=== PATIENT | female | born 1940 | race Caucasian/White ===

== ENCOUNTER → 2016-10-03 | Outpatient (CLI) | payer OTHER, MEDICARE ==
[~2016-10-03] MED LIST: AMBIEN 10 MG TA10 MG PO; AMBIEN 5 MG TABL5 M1 PO; ATIVAN0.5 MG PO; AVAPRO300 MG PO; AVELOX 400 MG400 MG PO; BENICAR40 MG PO; BYSTOLIC 5 MG5 M1 PO; CEFDINIR PO; CEPHALEXIN 500500 M2 PO; DARVOCET-N 1001 EACH PO; DICLOXACILLIN250 M1 OR; DILTIAZEM ER240 M1 PO; EXPECTORANT200 MG PO; HYDROCODON-ACE1 EAC7; HYDROCODONE-AP1 EA11 PO; MOM PO; MUCINEX TA600 MG/TA1 PO; NEURONTIN 300M300 M2 PO; NEURONTIN300 MG PO; NEURONTIN600 MG PO; OXYCODONE HCL5 M1 PO; PERCOCET 7.5-51 EACH PO; PLAVIX 75 MG TA75 MG PO; PREDNISONE 20 M20 M1 PO; PREDNISONE 20 M20 MG PO; PRILOSEC20 MG PO; PROAIR HFA8.5 GM; PROVENTIL17 G1 IH; REMERON15 M1 PO; ROBAXIN 750 MG750 M1 PO; SENOKOT TO GO8.6 MG PO; SIMVASTATIN5 MG PO; SPIRIVA INH; TRAMADOL 50 MG50 MG PO; TRIAMTERENE-HC1 EAC1 PO; VENTOLIN HFA 1818 GM INH; ZANTAC 150MG T150 MG PO; ZOCOR 10 MG TAB10 MG PO; ZOFRAN ODT4 MG PO; ZPAK PO; incomplete list
== END ==
LOC: CAT 14:24
DX: R91.1 Solitary pulmonary nodule (principal)

== ENCOUNTER → 2017-05-22 | Outpatient (CLI) | payer OTHER, MEDICARE | LOC: RAD 12:09 | DX: J44.1 Chronic obstructive pulmonary disease with (acute) exacerbation (principal) ==

== ENCOUNTER 2017-11-12 06:18 | Inpatient (IN) | payer OTHER, MEDICARE ==
[~2017-11-12] VITALS: Ht 170.2 cm; Wt 69.9 kg
--- NOTE | ~2017-11-12 | EKG ---
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: nayeli : 1940 Requested By: Jez Vu Order Number: [id number] MD: Fran Clemens Measurements Intervals [place] Rate: 106 P: 39 MO: 155 QRS: -3 QRSD: 79 T: 88 QT: 333 QTc: 443 Interpretive Statements Sinus tachycardia Abnormal R-wave progression, early transition Compared to ECG 12/05/2016 09:53:43 Heart rate has increased Electronically Signed On 11-12-2017 8:00:06 CONCRETE SMOOTHER by Fran Clemens [email or web address] <ELECTRONICALLY SIGNED> By: Fran Clemens MD, [facility] 11/12/17 0800 8 Fran Clemens MD, [facility] /EPI
[2017-11-12 06:18] VITALS: BP 135/75
[2017-11-12 07:05] LABS: HEMATOCRIT 31.8 % (37.0-47.0); HEMOGLOBIN 10.7 gm/dL (12.0-15.0); MCH 31.3 pg (26.0-34.0); MCHC 33.5 g/dL (28.0-37.0); MCV 93.4 fL (80.0-100.0); RBC 3.41 mil/uL (4.20-5.00); RDW 13.6 % (10.5-14.5); WBC 12.3 thou/uL (4.0-11.0)
[2017-11-12 07:14] LABS: ANION GAP 6 mmol/L (7-16); BUN 24 mg/dL (7-18); CALCIUM 9.3 mg/dL (8.5-10.1); CHLORIDE 102 mmol/L (98-107); CO2 30 mmol/L (21-32); CREATININE 1.8 mg/dL (0.6-1.0); GLUCOSE 105 mg/dL (74-106); POTASSIUM 4.6 mmol/L (3.5-5.1); SODIUM 138 mmol/L (136-145)
[2017-11-12 07:22] LABS: ALBUMIN 3.5 g/dL (3.4-5.0); SGOT 23 U/L (15-37); SGPT 23 U/L (30-65); TOTAL BILIRUBIN 0.3 mg/dL (<0.1-1.0); TOTAL PROTEIN 7.4 g/dL (6.4-8.2); TROPONIN-I < 0.04 ng/mL (<0.06)
[2017-11-12 08:30] VITALS: BP 104/64
[2017-11-12 08:35] VITALS: BP 104/64
[2017-11-12 09:00] VITALS: BP 120/61
[2017-11-12 16:00] VITALS: BP 149/81
[2017-11-12 20:41] VITALS: BP 146/79
[2017-11-13 04:33] VITALS: BP 111/62
[2017-11-13 07:54] VITALS: BP 143/75
[2017-11-13 10:14] LABS: HEMATOCRIT 29.7 % (37.0-47.0); HEMOGLOBIN 9.8 gm/dL (12.0-15.0); MCH 31.9 pg (26.0-34.0); MCHC 33.2 g/dL (28.0-37.0); MCV 96.1 fL (80.0-100.0); RBC 3.09 mil/uL (4.20-5.00); RDW 14.6 % (10.5-14.5); WBC 10.1 thou/uL (4.0-11.0)
[2017-11-13 10:22] LABS: CALCIUM 8.9 mg/dL (8.5-10.1); CREATININE 1.5 mg/dL (0.6-1.0)
[2017-11-13 11:40] LABS: URINE BILIRUBIN NEGATIVE (Negative); URINE BLOOD TRACE (Negative); URINE CLARITY CLEAR; URINE COLOR YELLOW; URINE GLUCOSE-RANDOM* NEGATIVE (Negative); URINE KETONES NEGATIVE (Negative); URINE LEUKOCYTES-REFLEX NEGATIVE (Negative); URINE NITRITE-REFLEX NEGATIVE (Negative); URINE PROTEIN (DIPSTICK) TRACE (Negative); URINE SPECIFIC GRAVITY 1.015 (1.005-1.035); URINE UROBILINOGEN 0.2 E.U./dl (0.2-1.0)
[2017-11-13 15:49] VITALS: BP 87/40
[2017-11-13 20:13] VITALS: BP 130/71
[2017-11-14 03:29] VITALS: BP 135/81
[2017-11-14 08:00] VITALS: BP 140/85
[2017-11-14 16:00] VITALS: BP 109/52
[2017-11-14 21:11] VITALS: BP 128/57
[2017-11-15 00:40] VITALS: BP 125/66
[2017-11-15 04:57] VITALS: BP 133/70
[2017-11-15] MEDS ORDERED: TAMIFLU30 MG PO (07:43)
[2017-11-15] MEDS ORDERED: CEFDINIR300 MG PO (07:44)
[2017-11-15 08:55] VITALS: BP 140/60
[2017-11-15 16:38] VITALS: BP 145/64
[2017-11-15 19:41] VITALS: BP 150/82
[2017-11-16 03:26] VITALS: BP 105/64
[2017-11-16 08:00] VITALS: BP 118/71
[2017-11-16 12:21] VITALS: BP 106/71
[2017-11-16 12:22] VITALS: BP 126/72; BP 146/81
[2018-04-16] MEDS ORDERED: XALATAN2.5 ML OPHTHALMIC (10:06)
== END 2017-11-16 15:00 | DRG 871 ==
LOC: ER 06:18 → 4S 07:39 → EROBS 07:39 → 4S 09:00
PROVIDERS: Emergency Medicine; Family Medicine
DX: A41.9 Sepsis, unspecified organism (principal); J11.00 Influenza due to unidentified influenza virus with unspecified type of pneumonia; J44.1 Chronic obstructive pulmonary disease with (acute) exacerbation; N17.9 Acute kidney failure, unspecified; F41.9 Anxiety disorder, unspecified; I73.9 Peripheral vascular disease, unspecified; I25.10 Atherosclerotic heart disease of native coronary artery without angina pectoris; N18.9 Chronic kidney disease, unspecified; I12.9 Hypertensive chronic kidney disease with stage 1 through stage 4 chronic kidney disease, or unspecified chronic kidney disease; E78.5 Hyperlipidemia, unspecified; G62.9 Polyneuropathy, unspecified; Z79.899 Other long term (current) drug therapy; Z95.820 Peripheral vascular angioplasty status with implants and grafts; Z90.49 Acquired absence of other specified parts of digestive tract; Z90.710 Acquired absence of both cervix and uterus; Z91.041 Radiographic dye allergy status; Z86.73 Personal history of transient ischemic attack (TIA), and cerebral infarction without residual deficits; Z87.891 Personal history of nicotine dependence
CPT/HCPCS: 10100

== ENCOUNTER → 2018-01-01 | Outpatient (CLI) | payer OTHER, MEDICARE ==
[~2018-01-01] MED LIST changes: +CEFDINIR300 MG PO; +TAMIFLU30 MG PO
== END ==
LOC: RAD 14:15
DX: J44.9 Chronic obstructive pulmonary disease, unspecified (principal); J18.9 Pneumonia, unspecified organism; J98.11 Atelectasis

== ENCOUNTER → 2018-04-16 | Outpatient (CLI) | payer OTHER, MEDICARE ==
[~2018-04-16] VITALS: Ht 170.2 cm; Wt 70.4 kg
[~2018-04-16] MED LIST changes: +XALATAN2.5 ML OPHTHALMIC
[2018-04-16 11:04] VITALS: BP 113/84
== END ==
LOC: PAIN 06:07
DX: M47.816 Spondylosis without myelopathy or radiculopathy, lumbar region (principal); I10 Essential (primary) hypertension; Z79.891 Long term (current) use of opiate analgesic

== ENCOUNTER 2018-07-01 16:39 | Emergency (ER) | payer OTHER, MEDICARE ==
[~2018-07-01] VITALS: Ht 170.2 cm; Wt 70.8 kg
--- NOTE | ~2018-07-01 | EKG ---
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
[2018-07-01 16:54] LABS: ABSOLUTE NEUTROPHILS 7.6 thou/uL (1.4-8.2); BASOPHILS 0.9 % (0.0-2.0); EOSINOPHILS 2.5 % (0.0-3.0); HEMATOCRIT 30.9 % (37.0-47.0); HEMOGLOBIN 10.5 gm/dL (12.0-15.0); LYMPHOCYTES 9.5 % (24.0-44.0); MCH 32.6 pg (26.0-34.0); MCHC 33.9 g/dL (28.0-37.0); MCV 96.2 fL (80.0-100.0); MONOCYTES 7.7 % (1.0-8.0); PLATELET COUNT 261 thou/uL (150-400); POLYS 79.4 % (36.0-66.0); RBC 3.21 mil/uL (4.20-5.00); RDW 13.7 % (10.5-14.5); WBC 9.5 thou/uL (4.0-11.0)
[2018-07-01 17:04] LABS: ANION GAP 4 mmol/L (7-16); BUN 31 mg/dL (7-18); CALCIUM 9.7 mg/dL (8.5-10.1); CHLORIDE 104 mmol/L (98-107); CO2 29 mmol/L (21-32); CREATININE 1.7 mg/dL (0.6-1.0); GLUCOSE 103 mg/dL (74-106); POTASSIUM 5.3 mmol/L (3.5-5.1); SODIUM 137 mmol/L (136-145)
[2018-07-01 17:12] LABS: ALBUMIN 3.6 g/dL (3.4-5.0); SGOT 20 U/L (15-37); SGPT 17 U/L (30-65); TOTAL BILIRUBIN 0.2 mg/dL (<0.1-1.0); TOTAL PROTEIN 8.3 g/dL (6.4-8.2); TROPONIN-I <0.06 ng/mL (<0.06)
[2018-07-01] MEDS ORDERED: PREDNISONE 20 M20 MG PO (18:27)
[2018-07-01] MEDS ORDERED: PROAIR HFA8.5 GM INH (18:27)
[2018-07-01] MEDS ORDERED: DOXYCYCLINE 10100 MG PO (18:28)
[2018-07-01 18:29] VITALS: BP 119/68
== END 2018-07-01 18:37 | disposition home or self-care (01) ==
LOC: ER 16:39
PROVIDERS: Emergency Medicine
DX: J44.1 Chronic obstructive pulmonary disease with (acute) exacerbation (principal); Z90.710 Acquired absence of both cervix and uterus; Z87.891 Personal history of nicotine dependence; Z91.041 Radiographic dye allergy status; Z96.0 Presence of urogenital implants

== ENCOUNTER 2018-08-17 16:55 | Inpatient (IN) | payer OTHER, MEDICARE ==
[~2018-08-17] VITALS: Ht 170.2 cm; Wt 69.9 kg
--- NOTE | ~2018-08-17 | HC ---
[facility] [address] [place] [address] CONSULTATION Name: ADONIS SHEARER Room #: 221-P [facility] IN M.R.#: [id number] Admission: 08/17/18 Attend Phys: Jason Zamudio MD Discharge: Date of : 42 Report #: [id number] THIS REPORT FOR: //name// CC: Jason Zamudio REASON FOR CONSULTATION: Elevated creatinine. REASON FOR PRESENTATION: Not feeling well for a few days. HISTORY OF PRESENT ILLNESS: The patient is a very well-known patient to me. She has a single kidney. The patient who lives with a baseline creatinine of 1.5. She had a right renal artery angioplasty and stent back in 2004. She is known to have hypertension with very prolonged history of smoking and peripheral arterial disease. She is also known to have hyperlipidemia and COPD. She presented to the Emergency Room, reporting that she has been having some flu-like symptoms with unsteadiness, fever, decreased p.o. intake. She reported to occasional nausea. She has remote history of AAA with aortic stent. She denies nonsteroidal anti-inflammatory medications. No reported fever or chills. As I have stated, she is known to have chronic kidney disease, used to see Dr. Glover in my clinic and ended up seeing me after he retired. When she presented to the Emergency Room yesterday, her creatinine was above her baseline at 3.0. However, this has trended down to 2.3. I am being consulted to manage her acute kidney injury. PAST MEDICAL HISTORY: 1. Hypertension. 2. Peripheral arterial disease. 3. Renal artery stent. 4. Abdominal aortic stent graft. 5. Right and left iliac stents. 6. Hysterectomy. 7. Laminectomy. 8. Advanced COPD. MEDICATIONS: 1. Ranitidine. 2. Morphine. 3. Irbesartan. 4. Gabapentin. 5. Plavix. ALLERGIES: . FAMILY HISTORY: Significant for hypertension and diabetes mellitus. REVIEW OF SYSTEMS: GENERAL: No fever or chills. [facility] [address] [place] [address] CONSULTATION Name: ADONIS SHEARER Room #: 221-P [facility] IN M.R.#: [id number] Admission: 08/17/18 Attend Phys: Jason Zamudio MD Discharge: Date of : 42 Report #: [id number] CARDIOVASCULAR: As per the history of present illness. PULMONARY: Occasional cough. GASTROINTESTINAL: Significant for nausea, vomiting, decreased p.o. intake. GENITOURINARY: No frequency, no urgency. PHYSICAL EXAMINATION: GENERAL: She is alert, oriented, in no apparent distress. VITAL SIGNS: Blood pressure was 124/111. HEAD AND NECK: No jugular venous distention. CHEST: Decreased air entry bilaterally. CARDIOVASCULAR: No rub detected. ABDOMEN: Soft, nontender with no hepatosplenomegaly. LOWER EXTREMITIES: No edema. LABORATORY DATA: Reviewed. BUN is down to 65 from 67, creatinine is down to 2.3 from 3.0. White blood cell count is 13.2. ASSESSMENT, IMPRESSION AND PLAN: 1. Acute kidney injury. 2. Dehydration. 3. Chronic obstructive pulmonary disease. 4. Hypertension. 5. Peripheral arterial disease with history of abdominal aortic aneurysm repair with a stent graft, bilateral iliac stents, renal artery stent. At this point, it does look like she has a prerenal component, and I agree with holding all of her blood pressure medications. Continue with the hydration with normal saline. Watch volume status. Creatinine has been trending down appropriately, and we will continue to watch for another day. Hopefully, she will get back to her baseline, which is around 1.6 in the morning. <ELECTRONICALLY SIGNED> By: Dav Oh MD 08/20/18 0956 7 0951 Dav Oh MD /nt
--- NOTE | ~2018-08-17 | EKG ---
[address] [address] ELECTROCARDIOGRAM REPORT Name: ADONIS SHEARER Room #: 170-11 ADM IN M.R.#: [id number] Admission: 08/17/18 Attend Phys: Jason Zamudio MD Discharge: Date of : 42 Report #: [id number] THIS REPORT FOR: //name// [facility] ED Test Date: 2018-08-17 Test Time: 17:21:41 Pat Name: ADONIS SHEARER Department: Room: 170 Gender: F Histology Supervisor: as : 1940 Requested By: Ramirez Tilley Order Number: [id number] MD: Da Peter Measurements Intervals [place] Rate: 96 P: 68 [place]: 161 QRS: -8 QRSD: 88 T: 70 QT: 335 QTc: 424 Interpretive Statements Sinus rhythm Compared to ECG 07/01/2018 16:52:46 No significant changes Electronically Signed On 08-17-2018 20:54:21 CENTRIFUGAL STATION OPERATOR by Da Peter [email or web address] <ELECTRONICALLY SIGNED> By: Da Peter MD 08/17/182053 20 20 Da Peetr MD /DARCI
[~2018-08-17 16:55] MED LIST changes: +DOXYCYCLINE 10100 MG PO; +PROAIR HFA8.5 GM INH
[2018-08-17 16:57] VITALS: BP 104/54
[2018-08-17] MEDS ORDERED: MS CONTIN 30 MG30 MG PO (17:45)
[2018-08-17 18:27] LABS: ABSOLUTE NEUTROPHILS 11.2 thou/uL (1.4-8.2); BASOPHILS 0.8 % (0.0-2.0); EOSINOPHILS 0.8 % (0.0-3.0); HEMATOCRIT 28.1 % (37.0-47.0); HEMOGLOBIN 9.4 gm/dL (12.0-15.0); LYMPHOCYTES 7.2 % (24.0-44.0); MCH 32.4 pg (26.0-34.0); MCHC 33.5 g/dL (28.0-37.0); MCV 96.8 fL (80.0-100.0); PLATELET COUNT 214 thou/uL (150-400); POLYS 84.2 % (36.0-66.0); RDW 14.2 % (10.5-14.5); WBC 13.2 thou/uL (4.0-11.0)
[2018-08-17 18:34] LABS: ANION GAP 12 mmol/L (7-16); BUN 67 mg/dL (7-18); CALCIUM 9.4 mg/dL (8.5-10.1); CHLORIDE 103 mmol/L (98-107); CO2 26 mmol/L (21-32); GLUCOSE 86 mg/dL (74-106); POTASSIUM 5.5 mmol/L (3.5-5.1); SODIUM 141 mmol/L (136-145)
[2018-08-17 18:37] LABS: URINE BLOOD NEGATIVE (Negative); URINE CLARITY CLEAR; URINE COLOR YELLOW; URINE GLUCOSE-RANDOM* NEGATIVE (Negative); URINE KETONES TRACE (Negative); URINE LEUKOCYTES-REFLEX NEGATIVE (Negative); URINE NITRITE-REFLEX NEGATIVE (Negative); URINE PROTEIN (DIPSTICK) NEGATIVE (Negative); URINE SPECIFIC GRAVITY >= 1.030 (1.005-1.035); URINE UROBILINOGEN 0.2 E.U./dl (0.2-1.0)
[2018-08-17 18:42] LABS: ICTOTEST (BILI CONFIRMATORY) Negative (Negative); URINE BILIRUBIN NEGATIVE (Negative)
[2018-08-17 18:43] LABS: ALBUMIN 3.4 g/dL (3.4-5.0); MAGNESIUM 2.1 mg/dL (1.8-2.4); SGOT 20 U/L (15-37); SGPT 14 U/L (30-65); TOTAL BILIRUBIN 0.6 mg/dL (<0.1-1.0); TOTAL PROTEIN 7.7 g/dL (6.4-8.2); TROPONIN-I <0.06 ng/mL (<0.06)
[2018-08-17 18:53] LABS: AMP/METHAMP Negative (Negative); BARBITURATES Negative (Negative); BENZODIAZEPINES Negative (Negative); COCAINE Negative (Negative); METHADONE Negative (Negative); OPIATES POSITIVE (Negative); PCP Negative (Negative)
[2018-08-17 19:40] VITALS: BP 127/84
[2018-08-17 20:45] VITALS: BP 115/67
[2018-08-18 05:49] VITALS: BP 154/83
[2018-08-18 08:31] LABS: CALCIUM 9.1 mg/dL (8.5-10.1); CREATININE 2.3 mg/dL (0.6-1.0); POTASSIUM 5.1 mmol/L (3.5-5.1)
[2018-08-18 08:32] VITALS: BP 124/111
[2018-08-18 17:01] VITALS: BP 138/84
[2018-08-18 20:09] VITALS: BP 138/71
[2018-08-19 04:19] VITALS: BP 128/65
[2018-08-19 06:02] LABS: ALBUMIN 2.8 g/dL (3.4-5.0); CALCIUM 8.9 mg/dL (8.5-10.1); PHOSPHORUS 3.3 mg/dL (2.5-4.9)
[2018-08-19 06:08] LABS: CREATININE 1.3 mg/dL (0.6-1.0)
[2018-08-19 08:20] VITALS: BP 125/69
[2018-08-19 16:20] VITALS: BP 110/58
[2018-08-19 19:30] VITALS: BP 89/46
[2018-08-19 22:10] VITALS: BP 90/55
[2018-08-20 07:20] VITALS: BP 99/77
[2018-08-20] MEDS ORDERED: HYDROCODON-ACE1 EAC7 PO (12:05)
[2018-08-20] MEDS ORDERED: MS CONTIN 30 MG30 M1 PO (12:05)
== END 2018-08-20 14:39 | DRG 682 ==
LOC: ER 16:55 → EROBS 19:32 → 4E 19:32 → ENTRNSPT 08-19 15:19 → EDTRNSPTSTS 08-19 15:22 → SICU 08-19 15:30 → CMPTRNSPT 08-20 12:59 → SICU 08-20 14:39
PROVIDERS: Emergency Medicine; Family Medicine; Hospitalist
DX: N17.9 Acute kidney failure, unspecified (principal); E43 Unspecified severe protein-calorie malnutrition; T50.905A Adverse effect of unspecified drugs, medicaments and biological substances, initial encounter; I73.9 Peripheral vascular disease, unspecified; J44.9 Chronic obstructive pulmonary disease, unspecified; E86.0 Dehydration; I12.9 Hypertensive chronic kidney disease with stage 1 through stage 4 chronic kidney disease, or unspecified chronic kidney disease; N18.9 Chronic kidney disease, unspecified; Z90.710 Acquired absence of both cervix and uterus; Z91.041 Radiographic dye allergy status; Z87.891 Personal history of nicotine dependence; Z82.49 Family history of ischemic heart disease and other diseases of the circulatory system; Z83.3 Family history of diabetes mellitus; Z79.899 Other long term (current) drug therapy
CPT/HCPCS: 10084; 15002

== ENCOUNTER 2018-10-27 14:49 | Inpatient (IN) | payer OTHER, MEDICARE ==
[~2018-10-27] VITALS: Ht 170.2 cm; Wt 64.8 kg
[~2018-10-27 14:49] MED LIST changes: +HYDROCODON-ACE1 EAC7 PO; +MS CONTIN 30 MG30 M1 PO; +MS CONTIN 30 MG30 MG PO
[2018-10-27 16:26] LABS: HEMATOCRIT 30.5 % (37.0-47.0); HEMOGLOBIN 10.4 gm/dL (12.0-15.0); MCH 32.6 pg (26.0-34.0); MCHC 34.1 g/dL (28.0-37.0); MCV 95.5 fL (80.0-100.0); RBC 3.2 mil/uL (4.20-5.00); WBC 11.9 thou/uL (4.0-11.0)
[2018-10-27 16:35] VITALS: BP 136/67
--- NOTE | 2018-10-27 16:41 | NUR ---
ADMISSION ASSESMENT COMPLETED. VSS. A/O. C/O CHRONIC BACK PAIN. NO NOTED SOA- O2 IN PLACE. NO NV. NOTERD SKIN TEAR ON LEFT FA- CLEANED WITH SALINE/MARATHON APPLIED. UP WITH STAND BY. PT RESTING IN BED AT THIS TIME. NO CONCERNS VOICED. WILL CONT. TO MONITOR.
[2018-10-27 16:42] LABS: ALBUMIN 3.7 g/dL (3.4-5.0); CALCIUM 9.3 mg/dL (8.5-10.1); CREATININE 1.5 mg/dL (0.6-1.0); POTASSIUM 4.9 mmol/L (3.5-5.1); TOTAL BILIRUBIN 0.2 mg/dL (<0.1-1.0); TOTAL PROTEIN 8.1 g/dL (6.4-8.2)
[2018-10-27 20:10] VITALS: BP 124/68
[2018-10-28 04:24] VITALS: BP 140/93
[2018-10-28 07:17] VITALS: BP 149/99
--- NOTE | 2018-10-28 14:01 | NUR ---
ASSESSMENT-PT LIVES [place]. SHE WALKS ON HER OWN AND TAKES HER OWN SPONGE BATH. PT SAYS SHE HAS NOT DRIVEN SINCE JULY. PT TAKES THE ELEVATOR TO HER APT. SHE HAS 02 AND A NEBULIZER FROM [facility] PT HAS A WALKER WITH A SEAT BUT WAS NOT USING IT PRIOT TO ADMISSION. PT HAS 2 DTRS IN THE AREA. 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 DTR'S FRIEND DOES HER SWEEPING. PT SAYS SHE HAS CALLED ABOUT GETTING MEALS ON WHEELS. SHE IS ALSO INTERESTED IN GETTING INFORMATION ON TRANSPORTATION RESOURCES. DISCUSSED 10-10 TAXI AND SHARE-A FARE. PT WANTS TO CONTINUE WITH [facility] [place].
[2018-10-28 16:07] VITALS: BP 133/71
--- NOTE | 2018-10-28 16:32 | NUR ---
REPORT RECEIVED BY DRAKE HAQ. PT TRANSFERED TO SICU RM 226 THIS AFTERNOON. PT A/O X 4. PLESANT AND ENERGETIC ON ARRIVAL. PT DENIES ANY PAIN AT THIS TIME. VSS. IV ATB HUNG PER NOV. PT UPDATED ON POC. ASSESSMENT PER CHART. LABS NOTED. WILL CONT TO MONITOR AND FOLLOW POC.
[2018-10-28 19:28] VITALS: BP 145/79
--- NOTE | 2018-10-29 02:12 | NUR ---
PT STANDBY ASSIST DUE TO TUBING FROM OXYGEN, ALERT/ORIENTED AND A LITTLE BIT FORGETFUL. CONTINUE ON 2L PER NC OXYGEN. LUNGS STILL DIMINISHED, OCCASIONAL COUGH NOTED. NORCO FOR CHRONIC BACK PAIN. IV ACCESS PATENT. TOLERATING ORAL FLUIDS. USING CALL LIGHT APPROPRIATELY. HOURLY ROUNDING, MONITORED.
[2018-10-29 08:00] VITALS: BP 143/92
[2018-10-29 08:19] LABS: HEMATOCRIT 30.5 % (37.0-47.0); HEMOGLOBIN 10.1 gm/dL (12.0-15.0); MCHC 33.3 g/dL (28.0-37.0); MCV 96.2 fL (80.0-100.0); RBC 3.16 mil/uL (4.20-5.00); RDW 12.8 % (10.5-14.5); WBC 16.2 thou/uL (4.0-11.0)
[2018-10-29 08:30] LABS: CALCIUM 10.5 mg/dL (8.5-10.1); CREATININE 1.6 mg/dL (0.6-1.0); POTASSIUM 4.9 mmol/L (3.5-5.1)
--- NOTE | 2018-10-29 08:32 | NUR ---
A&0X4, SLIGHTLY [place], AMB INDEPENDENTLY, STATES SHE ALSO USES A WALKER AT HOME, ASKED FOR DUCOLAX DURING REPORT THIS WORKS BEST FOR HER AT HOME, SAID SHE HAD TWO SMALL HARD STOOL THIS A.M., ENCOURAGED AMB AND HYDRATION WELL CALLING FOR ANY NEEDS
--- NOTE | 2018-10-29 09:48 | NUR ---
BERNARD reviewed chart and spoke with nursing. Pt was [facility] and is progressing towards goals for discharge. Pt is currently on service with [facility]. Plan is for pt to return home and resume HH services when medically stable. BERNARD faxed clinical info to [facility] and notified liaison. BERNARD is following to assist as needed with discharge planning.
--- NOTE | 2018-10-29 12:09 | NUR ---
DISCHARGE PLANNING. ANTICIPTED DISCHARGE TO HOME WITH [facility]. PATIENT IS CURRENT WITH [facility]. CLINICAL INFORMATION FAXED TO [facility]IA[facility], VERIFIED RECEIVED. [facility] TO FACILITATE HH NEEDS ONCE DISCHARGE/HH ORDERS COMPLETED. FOLLOWING TO ASSIST.
--- NOTE | 2018-10-29 12:19 | NUR ---
PHYSICIAN CALL: PT IS WANTING A WALKER TO AMB IN HALLWAY, CALLED AND SPOKE TO ANSWERING SERVICE TO RECEIVE THIS ORDER
--- NOTE | 2018-10-29 12:48 | NUR ---
PHYSICIAN CALLED BACK TO [facility] PT USING WALKER W/NURSE IN HALLWAY, ASKED RESIDENT RN HOW TO ENTER ORDER AND SHE AND CM SAID THERE WASN'T ONE NEEDED, AMB W/PT UP AND DOWN HALLWAYS THREE TIMES, NO INCREASED SOA PT DID WELL
--- NOTE | 2018-10-29 16:16 | NUR ---
PHOTO TAKEN OF SCAB ON LUE YET PRINTER HAS NO INK, WILL PASS ON FOR HER D/C FOR THAT PHOTO TO BE PRINTED OUT
--- NOTE | 2018-10-29 18:17 | NUR ---
PHYSICIAN CALL TO FIND OUT IF OK TO D/C IV IT'S NO LONGER PATENT WITH PT'S INCREASED AMBULATING, TENATIVE D/C TOMORROW, IV ABX AT 1600 DAILY. WILL REMOVE AND AWAIT PHYSICIAN'S ORDERS, SPOKE TO ANSWERING SERVICE
[2018-10-29 20:10] VITALS: BP 123/69
--- NOTE | 2018-10-30 05:36 | NUR ---
PATIENT ALERT AND ORIENTED X4. UP TO BATHROOM BY SELF. C/O PAIN X2. FIRST TIME AT 2010 WITH PAIN IN LOWER BACK OF 6. RESULT FROM THAT WAS SLEEPING. THE SECOND WAS THIS AM AT 0531 WITH LOWER BACK PAIN OF 8. EXPLAINED TO PATIENT SHE NEEDS TO CALL FOR PAIN MED BEFORE THE PAIN GETS THAT HIGH OR WE WILL NEVER GET IT UNDER CONTROL. SLEPT MOST OF NIGHT.
[2018-10-30 08:00] VITALS: BP 121/71
--- NOTE | 2018-10-30 10:26 | NUR ---
AAOX4. NO COMPLAINTS. REPORTS SLEEPING WELL OVERNIGHT. STATES SHE HAS BEEN WORKING HARD TO IMPROVE HER RESPIRATORY STATUS. FREQUENT CHECKS; WILL CONTINUE TO MONITOR.
[2018-10-30 10:31] VITALS: BP 123/69
--- NOTE | 2018-10-30 10:40 | NUR ---
BERNARD reviewed chart and spoke with nursing. Pt is progressing towards goals for discharge. Awaiting physician to evaluate pt to determine if pt is ready for discharge today. BERNARD met with pt at bedside to discuss discharge plan. Pt is hoping to return home today. 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 Pt will resume HH services through [facility]. BERNARD updated [facility] liaison. Contact info for [facility] placed in pt's discharge summary. SW is following to finalize discharge.
[2018-10-30] MEDS ORDERED: NORCO 7.5-3251 EACH PO (12:52)
[2018-10-30] MEDS ORDERED: PREDNISONE 10 M10 MG PO (12:53)
[2018-10-30] MEDS ORDERED: CEFDINIR300 MG PO (12:53)
[2018-10-30 13:10] VITALS: BP 123/69
== END 2018-10-30 16:50 | disposition home health service (06) | DRG 190 ==
LOC: 4E 14:49 → SICU 14:49 → ENTRNSPT 10-28 15:42 → EDTRNSPTSTS 10-28 15:43 → SICU 10-28 15:52 → ENTRNSPT 10-30 16:50
PROVIDERS: ADMIT Family Medicine
DX: J44.1 Chronic obstructive pulmonary disease with (acute) exacerbation (principal); E43 Unspecified severe protein-calorie malnutrition; F41.9 Anxiety disorder, unspecified; I10 Essential (primary) hypertension; G89.29 Other chronic pain; M54.9 Dorsalgia, unspecified; K59.00 Constipation, unspecified; E78.5 Hyperlipidemia, unspecified; Z88.6 Allergy status to analgesic agent; Z91.041 Radiographic dye allergy status; Z95.820 Peripheral vascular angioplasty status with implants and grafts; Z68.22 Body mass index [BMI] 22.0-22.9, adult; Z90.710 Acquired absence of both cervix and uterus; Z87.891 Personal history of nicotine dependence; Z79.899 Other long term (current) drug therapy
CPT/HCPCS: 10783; 15002